=== PATIENT | male | born 2000 | race Caucasian/White ===

== ENCOUNTER 2023-04-05 02:01 | Emergency (ER) | payer BC ==
[~2023-04-05] VITALS: Ht 182.9 cm; Wt 100.0 kg
[2023-04-05 02:05] VITALS: BP 126/76; PULSE 92; RESP 18; TEMP 98.4; O2SAT 98
[2023-04-05] MEDS ORDERED: SODIUM CHLORIDE 0.9% 1,000 ML IV ONE (02:30)
[2023-04-05 02:54] LABS: BASOPHILS % 0.5 % (0.0-2.0); HEMATOCRIT. 45.9 % (42.0-52.0); HEMOGLOBIN. 15.9 g/dL (14.0-18.0); LYMPHOCYTES % 32.2 % (20.0-50.0); MEAN CORPUSCULAR HEMOGLOBIN 30.9 pg (28.0-32.0); MEAN CORPUSCULAR HGB CONC 34.7 g/dL (31.0-37.0); MEAN CORPUSCULAR VOLUME 89.2 fL (80.0-94.0); MEAN PLATELET VOLUME 7.9 fl (7.4-10.4); MONOCYTES % 7.7 % (2.0-8.0); NEUTROPHILS % 58.6 % (40.0-76.0); PLATELET 200 x1000/uL (130-400); RED BLOOD CELL COUNT 5.14 mill/uL (4.7-6.1); RED CELL DISTRIBUTION WIDTH 13.5 % (11.6-14.6); WHITE BLOOD COUNT 4.7 x1000/uL (4.5-11.0)
[2023-04-05 02:56] LABS: CHLORIDE 113 mEq/L (98-107); POTASSIUM 3.8 mEq/L (3.5-5.1); SODIUM 144 mEq/L (136-145)
[2023-04-05 03:45] LABS: CALCIUM 8.3 mg/dL (8.5-10.1); CARBON DIOXIDE 23 mEq/L (21-32); CREATININE 0.8 mg/dL (0.6-1.3); GLUCOSE 116 mg/dL (70-105); PROTEIN TOTAL 8.4 g/dL (6.0-8.3); UREA NITROGEN BLOOD 8 mg/dL (7-21)
[2023-04-05 03:46] LABS: ACETAMINOPHEN < 10 ug/mL (10-30); ALANINE AMINOTRANSFERASE 54 IU/L (13-61); ALBUMIN 4.4 g/dL (3.4-5.0); ASPARTATE AMINOTRANSFERASE 21 IU/L (15-37); BILIRUBIN TOTAL 0.4 mg/dL (0.1-1.0)
[2023-04-05 04:44] LABS: ETHANOL BLOOD 286 mg/dL (<10)
== END 2023-04-05 04:20 | disposition home or self-care (01) ==
LOC: ER 02:01
DX: F10.129 Alcohol abuse with intoxication, unspecified (principal); Y90.8 Blood alcohol level of 240 mg/100 ml or more
CPT/HCPCS: 80053; 80307; 80329; 80320; 85025; 36415; 99283; J7030; G0480